=== PATIENT | male | born 1990 | race Caucasian/White ===

== ENCOUNTER 2018-06-12 14:28 | Inpatient (IN) | payer OTHER ==
[~2018-06-12] VITALS: Ht 170.2 cm; Wt 88.7 kg
[2018-06-12 14:29] VITALS: BP 105/54
[2018-06-12 14:59] LABS: ABSOLUTE NEUTROPHILS 7.9 thou/uL (1.4-8.2); BASOPHILS 0.4 % (0.0-2.0); EOSINOPHILS 0.9 % (0.0-3.0); HEMATOCRIT 46.9 % (42.0-52.0); LYMPHOCYTES 13.8 % (24.0-44.0); MCHC 34.1 g/dL (28.0-37.0); MCV 85.1 fL (80.0-100.0); MONOCYTES 6.2 % (1.0-8.0); PLATELET COUNT 285 thou/uL (150-400); POLYS 78.7 % (36.0-66.0); RBC 5.51 mil/uL (4.50-6.00); RDW 13.3 % (10.5-14.5)
--- NOTE | 2018-06-12 14:59 | NUR ---
THIS RN PLACED MED ORDERS PER DR DOLAN REQUEST; DOSE INCREASED AND THEN DR DOLAN ORDERED IT HIMSELF; ORDERS UPDATED TO MATCH MD FINAL REQUEST; CONFIRMED WITH MD AT NURSES STATION; CARDIZEM 20MG IV BOLUS X 1 STAT; CARDIZEM GTT PER PROTOCOL;
[2018-06-12 15:05] LABS: ANION GAP 13 mmol/L (7-16); BUN 18 mg/dL (7-18); CALCIUM 8.8 mg/dL (8.5-10.1); CHLORIDE 105 mmol/L (98-107); CO2 22 mmol/L (21-32); CREATININE 0.9 mg/dL (0.7-1.3); GLUCOSE 109 mg/dL (74-106); POTASSIUM 3.8 mmol/L (3.5-5.1); SODIUM 140 mmol/L (136-145)
[2018-06-12 15:11] LABS: APTT 29.9 Seconds (24.5-32.8); PROTIME 10.6 Seconds (9.3-11.4)
[2018-06-12 15:13] LABS: ALBUMIN 4.2 g/dL (3.4-5.0); SGOT 27 U/L (15-37); SGPT 57 U/L (30-65); TOTAL BILIRUBIN 0.3 mg/dL (<0.1-1.0); TOTAL PROTEIN 7.5 g/dL (6.4-8.2); TROPONIN-I <0.06 ng/mL (<0.06)
[2018-06-12 15:47] LABS: AMP/METHAMP Negative (Negative); BARBITURATES Negative (Negative); BENZODIAZEPINES Negative (Negative); COCAINE Negative (Negative); METHADONE Negative (Negative); OPIATES Negative (Negative); PCP Negative (Negative)
[2018-06-12 17:45] VITALS: BP 118/65
--- NOTE | 2018-06-12 18:00 | NUR ---
ATTEMPTED TO CALL REPORT; NURSE SAYS SHE WILL CALL ME RIGHT BACK
[2018-06-12 18:15] VITALS: BP 103/62
[2018-06-12 21:18] VITALS: BP 122/74
[2018-06-13 00:49] VITALS: BP 110/64
--- NOTE | 2018-06-13 03:12 | NUR ---
Admission history and assessments completed. Careplan initiated. Progressing well towards outcome goals. Patient converted to NSR prior to arriving to floor, patient states he feels better. Cardizem drip completed at 2200. IVfluids infusing. Vital signs ans rhythm stable. Up adlib, gait steady.
[2018-06-13 03:13] LABS: HEMATOCRIT 43.1 % (42.0-52.0); HEMOGLOBIN 15.1 gm/dL (14.0-18.0); MCH 29.8 pg (26.0-34.0); MCHC 35.1 g/dL (28.0-37.0); RBC 5.07 mil/uL (4.50-6.00); RDW 13.3 % (10.5-14.5); WBC 6.3 thou/uL (4.0-11.0)
[2018-06-13 03:21] LABS: CALCIUM 8.1 mg/dL (8.5-10.1); CREATININE 0.9 mg/dL (0.7-1.3); MAGNESIUM 1.7 mg/dL (1.8-2.4); POTASSIUM 3.6 mmol/L (3.5-5.1)
[2018-06-13 05:45] VITALS: BP 107/60
[2018-06-13 07:32] VITALS: BP 105/51
[2018-06-13 11:02] VITALS: BP 114/76
--- NOTE | 2018-06-13 11:54 | 2DMMODE ---
[facility] [address] [place] [address] 2 D/M-MODE ECHOCARDIOGRAM Name: KENDAL LR Room #: 350-[facility] IN .R.#: [id number] ������������� Admission: 06/12/18 ������������� Attend Phys: Navjot Warren, Discharge: ��� ������������� ��� Date of : 89 Date of Service: 06/13/18 1154 �� Report #: [id number] �������� ��������������������������������������������[id number] THIS REPORT FOR: //name// APPROVED REPORT Study performed: 06/13/2018 11:04:41 EXAM: Comprehensive 2D, Doppler, and color-flow Echocardiogram Patient Location: Bedside Room #: 350 Status: routine BSA: 2.00 HR: 77 bpm BP: 105/51 mmHg Rhythm: NSR Other Information Study Quality: Good Indications Atrial Fibrillation 2D Dimensions RVDd: 38.18 mm IVSd: 10.10 (7-11mm) LVOT Diam: 22.69 (18-24mm) LVDd: 45.46 mm PWd: 10.31 (7-11mm) Ascending Ao: 31.57 (22-36mm) LVDs: 31.50 (25-40mm) Aortic Root: 38.21 mm Volumes Left Atrial Volume (Systole) Single Plane 4CH: 35.38 mL Single Plane 2CH: 40.92 mL LA ESV Index: 20.00 mL/m2 Aortic Valve AoV Peak Colton.: 1.14 m/s AO Peak Gr.: 5.17 mmHg LVOT Max P.69 mmHg LVOT Max V: 0.96 m/s GRIFFIN Vmax: 3.41 cm2 Mitral Valve E/A Ratio: 1.6 MV Decel. Time: 195.34 ms MV E Max Colton.: 0.80 m/s [facility] [address] [place] [address] 2 D/M-MODE ECHOCARDIOGRAM Name: KENDAL LR Room #: 350-[facility] IN ..#: [id number] ������������� Admission: 06/12/18 ������������� Attend Phys: Navjot Warren, Discharge: ��� ������������� ��� Date of : 89 Date of Service: 06/13/18 1154 �� Report #: [id number] �������� ��������������������������������������������[id number] MV A Colton.: 0.49 m/s MV PHT: 56.65 ms IVRT: 69.20 ms Pulmonary Valve PV Peak Colton.: 0.85 m/s PV Peak Gr.: 2.91 mmHg Pulmonary Vein P Vein S: 0.60 m/s P Vein D: 0.47 m/s P Vein S/D Ratio: 1.28 Tricuspid Valve TR Peak Colton.: 2.08 m/s RAP Estimate: 5.00 mmHg TR Peak Gr.: 17.32 mmHg PA Pressure: 22.00 mmHg Left Ventricle The left ventricle is normal size. There is normal LV segmental wall motion. There is normal left ventricular wall thickness. Left ventricular systolic function is normal. LVEF is 55-60%. The left ventricular diastolic function is normal. Right Ventricle The right ventricle is normal size. The right ventricular systolic function is normal. Atria The left atrium size is normal. The right atrium size is normal. Aortic Valve The aortic valve is normal in structure. No aortic regurgitation is present. There is no aortic valvular stenosis. Mitral Valve The mitral valve is normal in structure. There is no mitral valve regurgitation noted. No evidence of mitral valve stenosis. Tricuspid Valve The tricuspid valve is normal in structure. Trace tricuspid regurgitation. Estimated PAP is 20-25mmHg. Pulmonic Valve The pulmonary valve is normal in structure. Mild pulmonic regurgitation. [facility] [address] [place] [address] 2 D/M-MODE ECHOCARDIOGRAM Name: KENDAL LR Room #: 350-P [facility] IN M.R.#: [id number] ������������� Admission: 06/12/18 ������������� Attend Phys: Navjot Warren, Discharge: ��� ������������� ��� Date of : 89 Date of Service: 06/13/18 1154 �� Report #: [id number] �������� ��������������������������������������������[id number] [employer] Aortic root is mildly dilated at 3.9cm. The ascending aorta is normal in size. IVC is normal in size and collapses >50% with inspiration. Pericardium There is no pericardial effusion. <Conclusion> The left ventricle is normal size. LVEF is 55-60%. The left ventricular diastolic function is normal. The right ventricle is normal size. The left atrium size is normal. The aortic valve is normal in structure. There is no mitral valve regurgitation noted. Trace tricuspid regurgitation. Estimated PAP is 20-25mmHg. Aortic root is mildly dilated at 3.9cm. There is no pericardial effusion. ��������������������������������������������� <ELECTRONICALLY SIGNED> ���������������������������������������� By: James Samaniego MD, FACC ��������������������������������������������� 06/13/18 1154 1154 1154 James Samaniego MD, FACC /INF
[2018-06-13] MEDS ORDERED: TOPROL XL25 MG PO (12:21)
[2018-06-13 12:58] VITALS: BP 114/76
--- NOTE | 2018-06-13 16:38 | EKG ---
[address] [address] ELECTROCARDIOGRAM REPORT Name: KENDAL LR Room #: 350-[facility] IN M.R.#: [id number] ������������������ Admission: 06/12/18 ������������������ Attend Phys: Navjot Warren MD Discharge: 06/13/18 ������������������ Date of : 89 Report #: [id number] ����������������������������������������������������������������� [id number] THIS REPORT FOR: //name// [facility] ED Test Date: 2018-06-12 Test Time: 14:47:00 Pat Name: KENDAL LR Department: Room: [facility] Gender: M Demo Event Specialist: : 1990 Requested By: Messi Ordonez Order Number: [id number] MD: Timi Diane Measurements Intervals [place] Rate: 169 P: [place]: QRS: 37 QRSD: 79 T: 9 QT: 264 QTc: 443 Interpretive Statements Atrial fibrillation Early repolarization No previous ECG available for comparison Electronically Signed On 06-13-2018 16:38:18 CDT by Timi Dinae [email or web address] ��������������������������������������������� <ELECTRONICALLY SIGNED> ���������������������������������������� By: Timi Diane MD, [facility] ��������������������������������������������� 06/13/18 1638 1447 1447 Timi Diane MD, FACC /EPI
== END 2018-06-13 16:13 | disposition home or self-care (01) | DRG 392 ==
LOC: ER 14:28 → 3W 16:35 → EROBS 16:35 → 3W 18:16
PROVIDERS: Emergency Medicine; ADMIT Internal Medicine
DX: K52.9 Noninfective gastroenteritis and colitis, unspecified (principal); I48.91 Unspecified atrial fibrillation; E83.42 Hypomagnesemia; Z79.899 Other long term (current) drug therapy
CPT/HCPCS: 10879